=== PATIENT | male | born 1990 | race African-American/Black ===

== ENCOUNTER 2024-02-23 12:28 | Emergency (ER) | payer OTHER ==
[~2024-02-23] VITALS: Ht 185.4 cm; Wt 95.6 kg
[2024-02-23] MEDS ORDERED: NORCO, ANEXSIA 5/325MG TABLET (HYDROcodone/ACETAMINOPHEN) PO ONE (15:00)
[2024-02-23] MEDS: ACETAMINOPHEN 500 MG TAB PO ONE (15:15)
[2024-02-23 16:18] LABS: Trichomonas vaginalis (AMP) NOT DETECTED (NEGATIVE)
[2024-02-23 16:23] LABS: GC DNA AMPLIFICATION NEGATIVE (NEGATIVE)
[2024-02-23 16:47] VITALS: BP 135/88; TEMP 97.3; O2SAT 99
== END 2024-02-23 16:49 | disposition home or self-care (01) ==
LOC: M ED 12:28
DX: I86.1 Scrotal varices (principal); F10.10 Alcohol abuse, uncomplicated